=== PATIENT | male | born 1990 | race Caucasian/White ===

== ENCOUNTER 2023-12-24 11:21 | Emergency (ER) | payer MEDICAID, OTHER ==
[~2023-12-24] VITALS: Ht 167.6 cm; Wt 79.1 kg
[2023-12-24 11:25] VITALS: PULSE 98; RESP 16; TEMP 98.2
[2023-12-24] MEDS ORDERED: AMOX-117 PO (13:00)
[2023-12-24 13:12] VITALS: BP 139/91
== END 2023-12-24 13:14 | disposition home or self-care (01) ==
LOC: ER 11:21
DX: K04.7 Periapical abscess without sinus (principal); Z72.89 Other problems related to lifestyle
CPT/HCPCS: 99283

== ENCOUNTER 2024-01-22 13:18 | Emergency (ER) | payer MEDICAID ==
[~2024-01-22] VITALS: Ht 172.7 cm; Wt 63.6 kg
[2024-01-22 13:21] VITALS: BP 106/73; PULSE 85; RESP 16; O2SAT 97
[2024-01-22] MEDS ORDERED: ALBU18HF2 INH (16:54)
[2024-01-22] MEDS ORDERED: PRED20TA PO (16:54)
[2024-01-22] MEDS ORDERED: BENZ-38 PO (16:55)
[2024-01-22 17:14] VITALS: TEMP 97.8
== END 2024-01-22 17:16 | disposition home or self-care (01) ==
LOC: ER 13:19
DX: J20.9 Acute bronchitis, unspecified (principal); J18.9 Pneumonia, unspecified organism; M79.18 Myalgia, other site
CPT/HCPCS: 71045; 99283